=== PATIENT | female | born 2000 | race African-American/Black ===

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

== ENCOUNTER 2024-04-06 06:32 | Emergency (ER) | payer MEDICAID ==
[~2024-04-06] VITALS: Ht 172.7 cm; Wt 82.0 kg
[2024-04-06 06:40] VITALS: O2SAT 99
[2024-04-06] MEDS: ONDANSETRON 4MG ODT PO STA (06:51)
[2024-04-06 07:11] LABS: BASOPHILS % 0.8 % (0.0-2.0); EOSINOPHILS % 0.1 % (0.0-5.0); HEMATOCRIT. 40.8 % (36.0-48.0); HEMOGLOBIN. 13.5 g/dL (12.0-16.0); LYMPHOCYTES % 15.8 % (20.0-50.0); MEAN CORPUSCULAR HEMOGLOBIN 32.8 pg (28.0-32.0); MEAN CORPUSCULAR HGB CONC 33.1 g/dL (31.0-37.0); MEAN CORPUSCULAR VOLUME 99.1 fL (81.0-99.0); MEAN PLATELET VOLUME 9.7 fl (7.4-10.4); MONOCYTES % 8.5 % (2.0-8.0); NEUTROPHILS % 74.8 % (40.0-76.0); PLATELET 181 x1000/uL (130-400); RED BLOOD CELL COUNT 4.12 mill/uL (4.2-5.4); RED CELL DISTRIBUTION WIDTH 14.2 % (11.6-14.6); WHITE BLOOD COUNT 3.6 x1000/uL (4.5-11.0)
[2024-04-06 07:17] LABS: CARBON DIOXIDE 21 mEq/L (21-32); CHLORIDE 112 mEq/L (98-107); POTASSIUM 3.5 mEq/L (3.5-5.1); SODIUM 142 mEq/L (136-145)
[2024-04-06 07:18] LABS: CALCIUM 9.5 mg/dL (8.7-10.4)
[2024-04-06 07:23] LABS: CREATININE 0.6 mg/dL (0.6-1.0); GLUCOSE 120 mg/dL (70-105)
[2024-04-06 07:30] LABS: HCG SCREEN NEGATIVE
[2024-04-06 07:41] LABS: CLARITY URINE TURBID (CLEAR); COLOR URINE ORANGE (YELLOW); GLUCOSE URINE NEGATIVE (NEGATIVE); KETONES URINE TRACE (NEGATIVE); LEUKOCYTE ESTERASE URINE TRACE (NEGATIVE); NITRITE URINE NEGATIVE (NEGATIVE); OCCULT BLOOD URINE 3+ (NEGATIVE); PH URINE 5.5 (4.5-8.0); PROTEIN URINE 2+ (NEGATIVE); SPECIFIC GRAVITY URINE 1.033 (1.005-1.030)
[2024-04-06 07:54] LABS: SQUAMOUS EPITHELIAL CELL URINE FEW /lpf (RARE/1+)
[2024-04-06 07:55] LABS: RBC URINE 50-100 /hpf (0-2); WBC URINE 0-2 /hpf (0-2)
[2024-04-06 07:56] LABS: AMORPHOUS SEDIMENT URINE 3+ /lpf; BACTERIA URINE TRACE
[2024-04-06] MEDS ORDERED: ONDA4TAB11 PO (07:59)
[2024-04-06 08:05] LABS: UREA NITROGEN BLOOD < 5 mg/dL (9-23)
[2024-04-06 08:12] VITALS: BP 122/70; PULSE 78; RESP 18; TEMP 98.6
== END 2024-04-06 08:12 | disposition home or self-care (01) ==
LOC: ER 06:46
DX: R11.2 Nausea with vomiting, unspecified (principal)
CPT/HCPCS: 99283; 80048; 81003; 81025; 84703; 83690; 85025; 36415; Q0162

== ENCOUNTER 2025-01-21 12:34 | Emergency (ER) | payer MEDICAID ==
[~2025-01-21] VITALS: Ht 160 cm; Wt 78.0 kg
[~2025-01-21 12:34] MED LIST: ONDA-239 PO
[2025-01-21 12:36] VITALS: O2SAT 99
[2025-01-21] MEDS: ONDANSETRON 4MG ODT PO ONE (12:59)
[2025-01-21] MEDS: ACETAMINOPHEN 500MG TABLET PO ONE (12:59)
[2025-01-21 13:04] LABS: BASOPHILS % 0.5 % (0.0-2.0); EOSINOPHILS % 0.8 % (0.0-5.0); HEMATOCRIT. 41.7 % (36.0-48.0); HEMOGLOBIN. 13.9 g/dL (12.0-16.0); LYMPHOCYTES % 17.2 % (20.0-50.0); MEAN CORPUSCULAR HEMOGLOBIN 32.4 pg (28.0-32.0); MEAN CORPUSCULAR HGB CONC 33.3 g/dL (31.0-37.0); MEAN CORPUSCULAR VOLUME 97.2 fL (81.0-99.0); MEAN PLATELET VOLUME 9.7 fl (7.4-10.4); MONOCYTES % 4.7 % (2.0-8.0); NEUTROPHILS % 76.8 % (40.0-76.0); PLATELET 186 x1000/uL (130-400); RED BLOOD CELL COUNT 4.29 mill/uL (4.2-5.4); RED CELL DISTRIBUTION WIDTH 14.9 % (11.6-14.6); WHITE BLOOD COUNT 6.1 x1000/uL (4.5-11.0)
[2025-01-21 13:12] LABS: CHLORIDE 110 mEq/L (98-107); POTASSIUM 3.9 mEq/L (3.5-5.1); SODIUM 142 mEq/L (136-145)
[2025-01-21 13:13] LABS: CARBON DIOXIDE 29 mEq/L (21-32); HCG SCREEN NEGATIVE
[2025-01-21] MEDS: KETOROLAC 15MG/ML VIAL IM ONE (13:14)
[2025-01-21 13:18] LABS: CREATININE 0.7 mg/dL (0.6-1.0); GLUCOSE 102 mg/dL (70-105); UREA NITROGEN BLOOD 7 mg/dL (9-23)
[2025-01-21 13:20] LABS: ALANINE AMINOTRANSFERASE 15 IU/L (10-49); ALBUMIN 4.1 g/dL (3.2-4.8); ASPARTATE AMINOTRANSFERASE 22 IU/L (<34); BILIRUBIN DIRECT 0.2 mg/dL (<=3.0)
[2025-01-21 13:21] LABS: BILIRUBIN TOTAL 0.8 mg/dL (0.1-1.0); PROTEIN TOTAL 7.3 g/dL (6.0-8.3)
[2025-01-21 14:23] VITALS: BP 107/88; PULSE 73; RESP 18; TEMP 37.1; O2SAT 100
[2025-01-21] MEDS ORDERED: NAPR-1176 MT (14:52)
[2025-01-21 14:54] LABS: CLARITY URINE CLOUDY (CLEAR); COLOR URINE ORANGE (YELLOW); GLUCOSE URINE NEGATIVE (NEGATIVE); KETONES URINE TRACE (NEGATIVE); LEUKOCYTE ESTERASE URINE TRACE (NEGATIVE); NITRITE URINE NEGATIVE (NEGATIVE); OCCULT BLOOD URINE 3+ (NEGATIVE); PROTEIN URINE 2+ (NEGATIVE); SPECIFIC GRAVITY URINE 1.028 (1.005-1.030)
[2025-01-21 15:09] LABS: BACTERIA URINE 1+; RBC URINE TNTC /hpf (0-2); SQUAMOUS EPITHELIAL CELL URINE 1+ /lpf (RARE/1+); YEAST URINE NONE SEEN
== END 2025-01-21 15:16 | disposition home or self-care (01) ==
LOC: ER 12:42
DX: N94.6 Dysmenorrhea, unspecified (principal); Z79.1 Long term (current) use of non-steroidal anti-inflammatories (NSAID); Z79.899 Other long term (current) drug therapy
CPT/HCPCS: 99285; 76830; 76856; 80076; 80048; 81003; 84703; 83690; 85025; 87086; 36415; 96372; J1885; Q0162

== ENCOUNTER 2025-08-11 08:15 | Inpatient (IN) | payer MEDICAID ==
[~2025-08-11] VITALS: Ht 172.7 cm; Wt 83.9 kg
[~2025-08-11 08:15] MED LIST changes: +NAPR-1176 MT
[2025-08-11 08:17] VITALS: O2SAT 98
[2025-08-11 08:45] LABS: HEMATOCRIT. 47.7 % (36.0-48.0); HEMOGLOBIN. 16.2 g/dL (12.0-16.0); MEAN PLATELET VOLUME 9.5 fl (7.4-10.4); PLATELET 183 x1000/uL (130-400); RED BLOOD CELL COUNT 4.71 mill/uL (4.2-5.4); RED CELL DISTRIBUTION WIDTH 13.3 % (11.6-14.6)
[2025-08-11 08:59] LABS: CREATININE 0.7 mg/dL (0.6-1.0); UREA NITROGEN BLOOD 9 mg/dL (9-23)
[2025-08-11] MEDS: LACTATED RINGERS 1,000 ML IV SCH (09:13)
[2025-08-11] MEDS: MORPHINE SULFATE 4 MG/ML INJ (FOR IV/IM USE) IV ONE (09:13)
[2025-08-11] MEDS: ONDANSETRON HCL 4MG/2ML INJ IV ONE (09:13)
[2025-08-11 09:31] LABS: PROTEIN TOTAL 8.1 g/dL (6.0-8.3)
[2025-08-11 09:32] LABS: ASPARTATE AMINOTRANSFERASE 26 IU/L (<34); BILIRUBIN DIRECT 0.3 mg/dL (<=3.0); BILIRUBIN TOTAL 1.3 mg/dL (0.1-1.0)
[2025-08-11 09:37] LABS: HCG SCREEN NEGATIVE
[2025-08-11 09:39] LABS: BAND% 4.0 % (1.0-6.0); EOSINOPHILS % MANUAL 1.0 % (0.0-5.0); LYMPHOCYTES % MANUAL 1.0 % (20.0-60.0); MONOCYTES % MANUAL 2.0 % (2.0-8.0); NEUTROPHILS % MANUAL 92.0 % (45.0-75.0); PLATELET ESTIMATE NORMAL
[2025-08-11] MEDS: HALOPERIDOL LACTATE 5MG/ML VIAL IM ONE (10:44)
[2025-08-11 12:10] VITALS: BP 125/76; PULSE 64; RESP 17; TEMP 36.5292
[2025-08-11] MEDS ORDERED: ACETAMINOPHEN 325MG TABLET PO PRN (13:45)
[2025-08-11] MEDS ORDERED: IPRATROPIUM/ALBUTEROL 0.5-3(2.5)MG/3ML NEB HHN PRN (13:45)
[2025-08-11] MEDS ORDERED: DOCUSATE SODIUM 100MG CAPSULE PO PRN (13:45)
[2025-08-11] MEDS: SODIUM CHLORIDE 0.9% 1,000 ML IV SCH (13:45)
[2025-08-11] MEDS ORDERED: CLONIDINE 0.1MG TABLET PO PRN (13:45)
[2025-08-11 16:00] VITALS: BP 124/68; PULSE 72; RESP 17; TEMP 36.5; O2SAT 95
[2025-08-11 20:00] VITALS: BP 113/77; PULSE 64; RESP 19; TEMP 36.6; O2SAT 98
[2025-08-11] MEDS: ACETAMINOPHEN 325MG TABLET PO PRN (22:57)
[2025-08-11] MEDS: ONDANSETRON HCL 4MG/2ML INJ IV PRN (23:22)
[2025-08-12] VITALS: BP 110/62; PULSE 19; PULSE 63; RESP 19; TEMP 36.5; O2SAT 100
[2025-08-12 01:45] LABS: *AMPHETAMINES SCREEN URINE NEGATIVE (NEGATIVE); *BARBITURATES SCREEN URINE NEGATIVE (NEGATIVE); *BENZODIAZEPINES SCREEN URINE NEGATIVE (NEGATIVE); *COCAINE SCREEN URINE PRESUMPTIVE POSITIVE (NEGATIVE); CANNABINOID URINE SCREEN PRESUMPTIVE POSITIVE (NEGATIVE); ECSTASY MDMA SCREEN URINE NEGATIVE (NEGATIVE); METHADONE URINE SCREEN NEGATIVE (NEGATIVE); OPIATES URINE SCREEN PRESUMPTIVE POSITIVE (NEGATIVE); PHENCYCLIDINE URINE SCREEN NEGATIVE (NEGATIVE)
[2025-08-12 04:00] VITALS: BP 102/55; PULSE 60; RESP 19; TEMP 36.4; O2SAT 100
[2025-08-12 07:12] LABS: HEMATOCRIT. 44.9 % (36.0-48.0); HEMOGLOBIN. 15.2 g/dL (12.0-16.0); MEAN PLATELET VOLUME 10.0 fl (7.4-10.4); PLATELET 172 x1000/uL (130-400); RED BLOOD CELL COUNT 4.45 mill/uL (4.2-5.4); RED CELL DISTRIBUTION WIDTH 13.2 % (11.6-14.6)
[2025-08-12 07:20] LABS: CREATININE 0.9 mg/dL (0.6-1.0)
[2025-08-12 07:21] LABS: PROTEIN TOTAL 7.3 g/dL (6.0-8.3); UREA NITROGEN BLOOD 6 mg/dL (9-23)
[2025-08-12 07:22] LABS: ASPARTATE AMINOTRANSFERASE 27 IU/L (<34)
[2025-08-12 07:23] LABS: BILIRUBIN TOTAL 0.7 mg/dL (0.1-1.0)
[2025-08-12 12:23] LABS: BAND% 1.0 % (1.0-6.0); LYMPHOCYTES % MANUAL 24.0 % (20.0-60.0); MONOCYTES % MANUAL 9.0 % (2.0-8.0); NEUTROPHILS % MANUAL 66.0 % (45.0-75.0); PLATELET ESTIMATE NORMAL
== END 2025-08-12 08:04 | disposition left against medical advice (07) | DRG 249 ==
LOC: ER 08:15 → 7EST 11:18 → EDBEDREQ 11:19 → EDBEDREQTM 11:19 → ENRESERV 11:46
PROVIDERS: ADMIT Internal Medicine; ATTEND Internal Medicine
DX: K52.9 Noninfective gastroenteritis and colitis, unspecified (principal); R16.0 Hepatomegaly, not elsewhere classified; K46.9 Unspecified abdominal hernia without obstruction or gangrene; F14.90 Cocaine use, unspecified, uncomplicated; M43.17 Spondylolisthesis, lumbosacral region; Z53.29 Procedure and treatment not carried out because of patient's decision for other reasons; Z79.899 Other long term (current) drug therapy
CPT/HCPCS: 36415; 74176; 80048; 80053; 80076; 80305; 84703; 85025; 99285; A4606; J1630; J2270; J2405; J7030